=== PATIENT | female | born 2000 | race Caucasian/White ===

== ENCOUNTER 2022-09-30 21:40 | Emergency (ER) | payer SELFPAY ==
[~2022-09-30] VITALS: Ht 165.1 cm; Wt 73.0 kg
[2022-10-01 01:00] VITALS: BP 147/68
== END 2022-10-01 01:58 | disposition home or self-care (01) ==
LOC: ER 21:40
DX: R06.02 Shortness of breath (principal); R07.9 Chest pain, unspecified; Z20.822 Contact with and (suspected) exposure to COVID-19
CPT/HCPCS: 71045; 87426; 93005; 99285; C9803